=== PATIENT | male | born 1995 | race Caucasian/White ===

== ENCOUNTER 2020-09-01 16:29 | Emergency (ER) | payer OTHER ==
[~2020-09-01] VITALS: Ht 177.8 cm; Wt 81.2 kg
[2020-09-01] MEDS ORDERED: NAPROXEN500 MG (16:38)
[2020-09-01] MEDS ORDERED: AMITRIPTYLINE H10 MG (16:41)
== END 2020-09-01 20:41 | disposition home or self-care (01) ==
LOC: ER 16:29
DX: G96.89 Other specified disorders of central nervous system (principal); G25.0 Essential tremor; Z03.818 Encounter for observation for suspected exposure to other biological agents ruled out